=== PATIENT | female | born 1955 | race Caucasian/White ===

== ENCOUNTER 2018-10-17 20:24 | Emergency (ER) | payer BC ==
[~2018-10-17] VITALS: Ht 160 cm; Wt 91.4 kg
[~2018-10-17 20:24] MED LIST: ACET325T33 PO; CLIN300C10 PO; IBUP-1561 PO
[2018-10-17 20:54] VITALS: BP 156/73; PULSE 80; RESP 18; Ht 160 cm; Wt 91.4 kg
[2018-10-17] MEDS ORDERED: BENZ-6 PO (23:48)
[2018-10-17] MEDS ORDERED: GUAI5SYR2 PO (23:48)
[2018-10-17] MEDS ORDERED: AMOX500C2 PO (23:49)
--- NOTE | 2018-10-17 23:53 | ERD ---
ER Documentation Chief Complaint Chief Complaint C/O ST X4 DAYS HPI Patient is a 62-year-old female with no past medical history presents the ER for concerns of sore throat times 4 days. Patient states she feels as of her tonsillar swelling. Patient denies any drooling, trismus, hypertension of her neck. Patient states when her symptoms started she did have a fever however fever lasted for a day. Patient denies any fevers for last 3 days. Patient does report a productive cough of clear sputum. Patient denies any chest pain, shortness of breath, nausea, vomiting, abdominal pain or diarrhea. No recent travel. No sick contacts. ROS All systems reviewed and are negative except as per history of present illness. Medications Home Meds Active Scripts Amoxicillin* (Amoxicillin*) 500 Mg Cap, 500 MG PO BID for 7 Days, CAP Prov:ZBIGNIEW RAMESH PA-C 10/17/18 Guaifenesin-Dextromethorphan* (Robitussin* DM) 100MG/10MG/5ML Syrup, 5 ML PO Q6H PRN for COUGH, #4 OZ Prov:ZBIGNIEW RAMESH PA-C 10/17/18 Benzonatate* (Tessalon Perle*) 100 Mg Capsule, 100 MG PO Q8H PRN for COUGH, #20 CAP Prov:ZBIGNIEW RAMESH PA-C 10/17/18 Ibuprofen* (Motrin*) 400 Mg Tab, 400 MG PO Q8, #14 TAB Prov:BETH MAGANA DO 12/01/15 Acetaminophen* (Tylenol*) 325 Mg Tablet, 2 TAB PO Q8 PRN for PAIN AND OR ELEVATED TEMP, #20 TAB Prov:BETH MAGANA DO 12/01/15 Clindamycin Hcl* (Clindamycin Hcl*) 300 Mg Capsule, 300 MG PO TID for 7 Days, CAP Prov:BETH MAGANA DO 12/01/15 Allergies Allergies: Coded Allergies: No Known Allergy (Unverified , 12/01/15) PMhx/Soc Medical and Surgical Hx: pt denies Medical Hx, pt denies Surgical Hx Hx Alcohol Use: No Hx Substance Use: No Hx Tobacco Use: No Smoking Status: Never smoker FmHx Family History: No diabetes Physical Exam Vitals Vital Signs Date Temp Pulse Resp B/P (MAP) Pulse Ox O2 O2 Flow FiO2 Time Delivery Rate 10/17/18 98.0 80 18 156/73 96 20:54 (100) Physical Exam GENERAL: Well-developed, well-nourished female. Appears in no acute distress. HEAD: Normocephalic, atraumatic. No deformities or ecchymosis. EYE: Pupils equal, round, and reactive to light. EOMs intact. No conjunctival erythema. No eye discharge. ENT: External ear without any masses or tenderness. Auditory canals clear bilaterally. TM visualized bilaterally, non-erythematous, non-bulging. Nasal mucosa pink with no discharge. Oropharynx is erythematous with 1+ tonsillar enlargement bilaterally. No exudates noted. no uvula deviation. No kissing ton sils. NECK: Supple. No meningismus. Normal ROM of the neck. Bilateral cervical lymphadenopathy noted, tender, small less than 1 cm, LUNG: Clear to auscultation bilaterally. No rhonchi, wheezing, rales or coarse breath sounds. HEART: Regular rate and rhythm. No murmurs, rubs or gallops. EXTREMITES: Equal pulses bilaterally. No peripheral clubbing, cyanosis or edema. No unilateral leg swelling. NEUROLOGIC: Alert and oriented to person, place and time. Moving all four extremities. 5/5 strength in all extremities. Normal speech. Steady gait. SKIN: Normal color. Warm and dry. No rashes or lesions. Procedures/MDM MEDICAL DECISION MAKING: This is a 62-year-old female with no past medical history presents the ER for concerns of sore throat cough times 4 days. Family vital signs were reviewed. Patient was afebrile. Patient was not hypoxic. ENT exam did reveal concerns for bacterial pharyngitis. I will empirically treat patient with course of antibiotics. Lung exam was normal. Patient will begin Robitussin-DM and Tessalon Perles for concerns of a viral URI. Low suspicion for pneumonia, meningitis, sinusitis, otitis externa, acute otitis media epiglottitis or peritonsillar abscess. PRESCRIPTIONS: Amoxicillin, Robitussin-DM, Tessalon Perles DISCHARGE: At this time, patient is stable for discharge and outpatient management. Supportive therapies such as OTC throat lozenges, salt water gurgles, popsicles and jello discussed. I have instructed the patient to follow-up with his/her primary care physician in 1-2 days. I have instructed the patient to promptly return to the ER for any new or worsening symptoms including increased pain, swelling, fever, nausea, vomiting, weakness or difficulty breathing. The patient and/or family expressed understanding of and agreement with this plan. All questions were answered. Home care instructions were provided. Patients blood pressure was elevated (>120/80) but appears stable without evidence of hypertensive emergency, hypertensive urgency or end-organ failure. I had discussion with the patient about the risks of hypertension. I have advised the patient to follow up with his/her primary care physician for outpatient monitoring and treatment for hypertension in 2-3 days. I have instructed the patient to return to the ER for any new or worsening symptoms including chest pain, shortness of breath, headache, blurred vision, confusion, nausea, vomiting or LOC. Disclaimer: Inadvertent spelling and grammatical errors are likely due to EHR/dictation software use and do not reflect on the overall quality of patient care. Also, please note that the electronic time recorded on this note does not necessarily reflect the actual time of the patient encounter. Departure Diagnosis: Primary Impression: Acute bacterial tonsillitis Additional Impression: URI (upper respiratory infection) URI type: unspecified URI Qualified Codes: J06.9 - Acute upper respiratory infection, unspecified Condition: Fair Patient Instructions: Preventing Common Respiratory Infections [facility] Usted se whitehead hecho un examen mdico de control que le indica que no est en kreri condicin que requiera tratamiento urgente en el Departamento de Emergencia. Un estudio ms profundo y el tratamiento de willams condicin pueden esperar sin ningn riesgo hasta que usted sea atendida/o en el consultorio de willams mdico o kerri clnica. Es responsabilidad suya arreglar kerri charles para el seguimiento del nahomy. MANEJO DE CONDICIONES NO URGENTES EN EL FUTURO 1) Si usted tiene un mdico de atencin primaria: Usted debera llamar a willams mdico de atencin primaria antes de venir al departamento de emergencia. Despus de las horas de consultorio, willams doctor o willams asociado/a est disponible por telfono. El mdico o enfermero de radha en el servicio telefnico puede asesorarle por aneudy medio para atender el problema, o nahomy contrario se puede programar kerri charles. 2) Si usted no tiene un mdico de atencin primaria: Llame al mdico o clnica de referencia que aparece abajo kriss las horas de consultorio para hacer kerri charles para que le vean. CLINICAS: [facility] [phone] [place] [facility] [phone] [facility] [phone] [address] [facility] [place] [address] [phone] [facility] [place] [id number] [phone] [facility] [phone] [address] [facility] [facility] () Usted se whitehead hecho un examen mdico de control que le indica que no est en kerri condicin que requiera tratamiento urgente en el Departamento de Emergencia. Un estudio ms profundo y el tratamiento de willams condicin pueden esperar sin ningn riesgo hasta que usted sea atendida/o en el consultorio de willams mdico o kerri clnica. Es responsabilidad suya arreglar kerri charles para el seguimiento del nahomy. MANEJO DE CONDICIONES NO URGENTES EN EL FUTURO 1) Si usted tiene un mdico de atencin primaria: Usted debera llamar a willams mdico de atencin primaria antes de venir al departamento de emergencia. Despus de las horas de consultorio, willams doctor o willams asociado/a est disponible por telfono. El mdico o enfermero de radha en el servicio telefnico puede asesorarle por aneudy medio para atender el problema, o nahomy contrario se puede programar kerri charles. 2) Si usted no tiene un mdico de atencin primaria: Llame al mdico o condado institucions de referencia que aparece abajo kriss las horas de consultorio para hacer kerri charles para que le vean. SI USTED NO PUEDE PAGAR PARA BERYL UN MEDICO puede ir a: [facility] [address] [place] [address] [facility] [address] [place] [address] [facility] [address] [place] [address] PAR[address] [facility] [address] [place], [place] [id number] Additional Instructions: Llame al doctor MAANA y luís kerri CHARLES PARA DENTRO DE 1-2 RIVAS.Dgale a la secretaria que nosotros le instruimos hacer esta charles.Avise o llame si willams condicin se empeora antes de la charles. Regresa aqui si peor o no mejor. ZBIGNIEW RAMESH PA-C Oct 17, 2018 23:53
== END 2018-10-18 00:10 | disposition home or self-care (01) ==
LOC: FTE 20:24
DX: J03.90 Acute tonsillitis, unspecified (principal); J06.9 Acute upper respiratory infection, unspecified
CPT/HCPCS: 99283